=== PATIENT | male | born 1970 | race Hispanic/Latino ===

== ENCOUNTER 2018-06-10 19:35 | Emergency (ER) | payer BC, SELFPAY ==
--- OUTSIDE RECORDS SUMMARY | 2018-06-10 19:37 | XMS REPORT ---
:1970 Author Organization eClinicalWorks Care Team Providers Name Role Phone Harpal Jp Provider Role Unavailable Allergies, Adverse Reactions, Alerts Substance Reaction Event Type N.K.D.A. Info Not Available Non Drug Allergy Problems Problem Type Condition Code Onset Dates Condition Status Problem Premature ejaculation F52.4 Active Problem Diabetes mellitus type 2, controlled E11.9 Active Problem Esophageal stenosis K22.2 Active Problem Overweight E66.3 Active Problem Restless leg syndrome G25.81 Active Problem Insomnia G47.00 Active Problem Mixed hyperlipidemia E78.2 Active Problem Benign essential hypertension I10 Active Problem Esophagitis K20.9 Active Problem Helicobacter pylori gastritis B96.81 Active Assessment Benign essential hypertension I10 Active Assessment Mixed hyperlipidemia E78.2 Active Assessment Esophagitis K20.9 Active Problem Decreased libido R68.82 Active Problem Hemorrhoids, unspecified hemorrhoid K64.9 Active type Assessment Diabetes mellitus type 2, controlled E11.9 Active Problem Fatigue, unspecified type R53.83 Active Problem Psoriasis, unspecified L40.9 Active Medications Medication Code Code Instructions Start End Status Dosage System Date Date Simvastatin ND 49319856606 80 MG Orally Active 1 tablet Once a day in the evening Farxiga [facility] 28749885187 5 MG Orally Once Active 1 tablet a day Metformin HCl ND 56153377293 1000 MG Orally Active 1 tablet Twice a day with meals Aspirin Adult [facility] 49827062654 81 MG Orally Active 1 tablet Low Dose Once a day Lisinopril [facility] 19947078327 10 MG Orally Active 1 tablet Once a day Results No Known Results Summary Purpose eClinicalWorks Submission
--- OUTSIDE RECORDS SUMMARY | 2018-06-10 19:37 | XMS REPORT ---
:1970 Author Organization eClinicalWorks Care Team Providers Name Role Phone Jp oRwan Provider Role Unavailable Allergies, Adverse Reactions, Alerts Substance Reaction Event Type N.K.D.A. Info Not Available Non Drug Allergy Problems Problem Type Condition Code Onset Dates Condition Status Problem Premature ejaculation F52.4 Active Problem Diabetes mellitus type 2, controlled E11.9 Active Problem Esophageal stenosis K22.2 Active Problem Overweight E66.3 Active Assessment Decreased libido R68.82 Active Problem Restless leg syndrome G25.81 Active Assessment Fatigue, unspecified type R53.83 Active Problem Insomnia G47.00 Active Problem Mixed hyperlipidemia E78.2 Active Problem Benign essential hypertension I10 Active Problem Esophagitis K20.9 Active Problem Helicobacter pylori gastritis B96.81 Active Assessment Benign essential hypertension I10 Active Assessment Mixed hyperlipidemia E78.2 Active Assessment Hemorrhoids, unspecified hemorrhoid K64.9 Active type Assessment Esophagitis K20.9 Active Problem Decreased libido R68.82 Active Problem Hemorrhoids, unspecified hemorrhoid K64.9 Active type Assessment Diabetes mellitus type 2, controlled E11.9 Active Problem Fatigue, unspecified type R53.83 Active Assessment Encounter for preventative adult Z00.01 Active health care exam with abnormal findings Problem Psoriasis, unspecified L40.9 Active Medications Medication Code Code Instructions Start End Status Dosage System Date Date Aspirin Adult [facility] 98262385371 81 MG Orally Active 1 tablet Low Dose Once a day Simvastatin [facility] 59337953327 80 MG Orally Active 1 tablet Once a day in the evening Lisinopril [facility] 65242052677 10 MG Orally Active 1 tablet Once a day Farxiga [facility] 80115549285 5 MG Orally Once December 02January Active 1 tablet a day 2017 Metformin HCl [facility] 21149458211 1000 MG Orally Active 1 tablet Twice a day with meals Results No Known Results Summary Purpose eClinicalWorks Submission
--- OUTSIDE RECORDS SUMMARY | 2018-06-10 19:37 | XMS REPORT ---
:1970 Author Organization eClinicalWorks Care Team Providers Name Role Phone Sergio Bone Provider Role Unavailable Allergies, Adverse Reactions, Alerts [...] Active Problem Helicobacter pylori gastritis B96.81 Active Problem Decreased libido R68.82 Active Problem Hemorrhoids, unspecified hemorrhoid K64.9 Active type Assessment Grade I hemorrhoids K64.0 Active Problem Fatigue, unspecified type R53.83 Active Assessment Encounter for screening colonoscopy Z12.11 Active Problem Psoriasis, unspecified L40.9 Active Medications Medication Code Code Instructions Start End Status Dosage System Date Date Lisinopril [facility] 17093866572 10 MG Orally Active 1 tablet Once a day Farxiga [facility] 34027188751 5 MG Orally Once December 02January Active 1 tablet a day 2017 Aspirin Adult [facility] 89412622703 81 MG Orally Active 1 tablet Low Dose Once a day Metformin HCl [facility] 55451899773 1000 MG Orally Active 1 tablet Twice a day with meals Simvastatin [facility] 65576959972 80 MG Orally Active 1 tablet Once a day in the evening Results No Known Results Summary Purpose eClinicalWorks Submission
--- OUTSIDE RECORDS SUMMARY | 2018-06-10 19:38 | XMS REPORT ---
:1970 Author Organization eClinicalWorks Care Team Providers Name Role Phone Jp Rowan Provider Role Unavailable Allergies No Known Allergies Problems Problem Type Condition Code Onset Dates [...] Status Dosage System Date Date Simvastatin ND 36395835108 80 Orally Once a Active 1 tablet day in the evening Metformin HCl ND 15272415708 1000 MG Orally Active 1 tablet Twice a day with meals Simvastatin ND 88755576226 80 MG Orally Active 1 tablet Once a day in the evening Metformin HCl [facility] [place] 59423100731 1000 Orally Active 1 tablet Twice a day with meals Aspirin Adult [facility] [place] 2[place] 96333326830 81 MG Orally Active 1 tablet Low Dose Once a day Farxiga [facility] [place] 2[place] 28347770988 5 MG Orally Once Aug 11, Active 1 tablet a day 2018 Lisinopril ND 58509182284 10 MG Orally Active 1 tablet Once a day Results No Known Results Summary Purpose eClinicalWorks Submission
[2018-06-10] MEDS ORDERED: IBUPROFEN 200 MG TAB PO ONE (20:49)
[2018-06-10] MEDS ORDERED: IBUPROFEN 400 MG TAB ONE (20:49)
[2018-06-10] MEDS ORDERED: ACETAMINOPHEN 500 MG TAB ONE (20:50)
--- NOTE | 2018-06-10 21:37 | RAD REPORT ---
EXAM DESCRIPTION: Erica Akins And Nanci (2 Views)06/10/2018 9:05 pm CLINICAL HISTORY: Cough COMPARISON: None FINDINGS: The lungs appear clear of acute infiltrate. The heart is normal size. An azygos lobe is n oted. IMPRESSION: No acute abnormalities displayed
--- NOTE | 2018-06-10 21:39 | RAD REPORT ---
EXAM DESCRIPTION: RAD -Hand Left 3 View - 06/10/2018 9:05 pm CLINICAL HISTORY: Left hand pain status post injury FINDINGS: No fracture or dislocation is seen.
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
== END 2018-06-10 22:07 | disposition home or self-care (01) ==
LOC: ER 19:35
DX: S00.33XA Contusion of nose, initial encounter (principal); S60.222A Contusion of left hand, initial encounter; V49.40XA Driver injured in collision with unspecified motor vehicles in traffic accident, initial encounter; I10 Essential (primary) hypertension; E11.9 Type 2 diabetes mellitus without complications; E78.00 Pure hypercholesterolemia, unspecified
CPT/HCPCS: 71046; 99284

== ENCOUNTER 2020-03-12 07:14 | Day surgery (SDC) | payer BC ==
[2020-03-12] MEDS: NA CHLORIDE 0.9% 1,000 ML ONE ×2 (07:15→12:54)
--- OUTSIDE RECORDS SUMMARY | 2020-03-12 07:18 | XMS REPORT | Continuity of Care Document ---
:1970 Author Organization [facility] Address [address] [place] [address] [address] [place] [address] Care Team Providers Name Role Phone Unavailable Unavailable Unavailable Problems Condition Condition Condition Status Onset Resolution Last Treating Co mments Source Name Details Category Date Date Treatment Clinician Date Premature Premature Problem Active [facility] ejaculatio ejaculatio Emerita kes - n n Memoria l [facility] Diabetes Diabetes Problem Active [facility] mellitus mellitus [facility] - type 2, type 2, Memoria controlled controlled l [facility] Esophageal Esophageal Problem Active [facility] stenosis stenosis [facility] - [facility] Overweight Overweight Problem Active [facility] - [facility] Decreased Decreased Problem Active [facility] libido libido [facility] - [facility] Restless Restless Problem Active [facility] leg leg [facility] - syndrome syndrome Memori a l [facility] Fatigue, Fatigue, Problem Active [facility] unspecifie unspecifie Emerita kes - d type d type Memoria l [facility] Insomnia Insomnia Problem Active [facility] Mixed Mixed Diagnosis Active [facility] hyperlipid hyperlipid Emerita kes - emia emia Memoria l [facility] Benign Benign Problem Active [facility] essential essential [facility] s - hypertensi hypertensi Me moria on on l [facility] Esophagiti Esophagiti Problem Active [facility] s s [facility] - [facility] Helicobact Helicobact Problem Active [facility] er pylori er pylori Luke s - gastritis gastritis Jovi dillon l [facility] Hemorrhoid Hemorrhoid Problem Active [facility] s, s, [facility] - unspecifie unspecifie Me moria d d l hemorrhoid hemorrhoid Ou tpati type type ent Clinics Psoriasis, Psoriasis, Problem Active [facility] unspecifie unspecifie Emerita kes - d d Memoria l [facility] Non Non Diagnosis Active [facility] compliance compliance Emerita kes - with with [facility] medical medical l treatment treatment Outp ati ent Clinics Adult BMI Adult BMI Diagnosis Active [facility] 27.0-27.9 27.0-27.9 Luke s - kg/sq m kg/sq m [facility] Encounter Encounter Diagnosis Active [facility] for for [facility] - wellness wellness Memori a examinatio examinatio l n in adult n in adult Ou tpati ent Clinics Need for Need for Diagnosis Active [facility] Tdap Tdap [facility] - vaccinatio vaccinatio Me moria n n l [facility] Screening Screening Diagnosis Active [facility] for colon for colon Luke s - cancer cancer [facility] Allergies, Adverse Reactions, Alerts This patient has no known allergies or adverse reactions. Medications Ordered Filled Start Stop Current Ordering Indication Dosage Frequency Signature Comments Components Source Medication Medication Date Date Medication? Clinician (SIG) Name Name Jardiance Jardiance 2019- Yes Jp [address] [facility] [address] 02-23 Rowan [facility] - 00:00: 00:00 Memoria 00 :00 [facility] Trazodone Trazodone Yes Jp [address] [facility] [address] HCl HCl 1-03 Rowan at bedtime [facility] - 00:00: Memoria 00 [facility] Aspirin Aspirin Yes Jp [address] [facility] Adult Low Adult Low Rowan Luke s - Dose Dose [facility] Metformin Metformin Yes Jp [address] [facility] [address] HCl HCl Rowan with meals [facility] Lisinopril Lisinopril Yes Jp [address] [facility] [address] Rowan [facility] Simvastatin Simvastatin Yes Jp [address] [facility] [address] Rowan in the [facility]ukes - evening [facility] Immunizations Ordered Filled Immunization Date Status Comments Sourc e Immunization Name Name Tdap Tdap 2020-02-[address] [facility] - 00:[facility]00 [facility] Procedures This patient has no known procedures. Encounters Start End Encounter Admission Attending Care Care Encounter Source Date/Time Date/Time Type Type Clinicians Facility Department ID 2020-02-24 2020-02-24 Outpatient Chandan Gonzalez [id number] [facility] [address] 08[facility]15[facility]00 08:15:[address] [place] [address] [facility] [place] - Drive [facility] Medicine l Medicine Outpati ent Clinics 2019-10-07 2019-10-07 [facility] [id number] [address] 08:37:00 08:37:[address] [place] [address] Luke s - Drive [facility] Medicine l Medicine Outpati ent Clinics 2019-10-06 2019-10-06 [facility] [id number] 14:15:00 14:15:[address] [place] [address] Luke s - Drive [facility] Medicine l Medicine Outpati ent Clinics 2019-08-05 2019-08-05 [facility] [id number] 10:15:00 10:15:00 [place] [employer] [place] - Drive [facility] l Medicine Outpati ent Clinics 2018-10-19 2018-10-19 [facility] [id number] 09:53:00 09:53:00 [place] [employer] [place] - Drive [facility] Medicine Medicine Outpati ent Clinics 2018-10-18 2018-10-18 [facility] [id number] 13:15:00 13:15:00 [place] [id number] - Drive [facility] Medicine l Medicine Outpati ent Clinics 2018-09-01 2018-09-01 [facility] [id number] 11:57:00 11:57:00 [place] [employer] [place] - Drive [facility] Medicine l Medicine Outpati ent Clinics 2018-08-20 2018-08-20 [facility] [id number] 08:00:00 08:00:00 [place] [employer] [place] s - Drive [facility] Medicine l Medicine Outpati ent Clinics 2018-05-13 2018-05-13 [facility] [id number] [address] 13:15:00 13:15:00 [place] [employer] - Drive [facility] Medicine l Medicine Outpati ent Clinics 2018-02-12 2018-02-12 [facility] [id number] 09[facility]00:00 09:00:00 [place] [employer] - Drive [facility] Medicine l Medicine Outpati ent Clinics 2017-12-15 2017-12-15 [facility] [id number] [facility] 15:00:00 15:00:00 t Specialty/U Emerita kes - Specialty rology [facility] a /Urology Clinic l Clinic Outpati ent Clinics 2017-12-02 2017-12-02 Outpatient Chandan Gonzalez [id number] [facility] 15:15:00 15:15:00 t [place] [employer] [place] [facility] - [employer] [facility] Medicine [facility] Clinics Results This patient has no known results.
--- OUTSIDE RECORDS SUMMARY | 2020-03-12 07:19 | XMS REPORT ---
:1970 Author Organization [employer] Care Team Providers Name Role Phone Gail Rowanh Provider Role Unavailable Allergies, Adverse Reactions, Alerts Substance Reaction Event Type N.K.D.A. Info Not Available Non Drug Allergy Problems Problem Type Condition Code Onset Dates Condition Statu s Problem Mixed hyperlipidemia E78.2 Active Problem Esophagitis K20.9 Active Problem Helicobacter pylori gastritis B96.81 Active Problem Esophageal stenosis K22.2 Active Assessment Insomnia, unspecified type G47.00 A ctive Problem Premature ejaculation F52.4 Active Assessment Non compliance with medical Z91.19 Active treatment Assessment Adult BMI 27.0-27.9 kg/sq m Z68.27 Active Problem Insomnia, unspecified type G47.00 A ctive Problem Overweight E66.3 Active Problem Restless leg syndrome G25.81 Active Problem Psoriasis, unspecified L40.9 Activ e Problem Insomnia G47.00 Active Assessment Diabetes mellitus type 2, controlled E11.9 Active Assessment Encounter for wellness examination Z00.00 Active in adult Assessment Benign essential hypertension I10 Active Assessment Mixed hyperlipidemia E78.2 Active Problem Fatigue, unspecified type R53.83 Ac tive Problem Decreased libido R68.82 Active Assessment Need for Tdap vaccination Z23 Ac tive Problem Diabetes mellitus type 2, controlled E11.9 Active Assessment Screening for colon cancer Z12.11 A ctive Problem Hemorrhoids, unspecified hemorrhoid K64.9 Active type Problem Benign essential hypertension I10 Active Medications Medication Code Code Instructions Start End Status Dosage System Date Date Simvastatin ND 99962663444 80 MG Orally Active 1 t ablet Once a day in the evening Trazodone HCl ND 58170434360 100 MG Orally Active 1 tablet Once a day at bedtime Lisinopril ND 10367182256 5 MG Orally Once Active 1 tablet a day Aspirin Adult ND 30477789339 81 MG Orally Active 1 tablet Low Dose Once a day Metformin HCl ND 56016723872 1000 MG Orally Active 1 tablet Twice a day with meals Jardiance [facility] 82812474594 10 MG Orally February 23May 24, Active 1 ta blet Once a day 2019 2019 Results No Known Results Immunizations Vaccine Administration Date Tdap February 24, 2020 Summary Purpose [employer] Submission
[2020-03-12] MEDS ORDERED: LIDOCAINE 1% MPF 5 ML VIAL ONE (08:41)
[2020-03-12] MEDS ORDERED: propofoL 200 MG/20 ML VIAL IV ONE (08:41)
--- NOTE | 2020-03-12 10:27 | ENDO RPT ---
[address], [address] COLONOSCOPY PROCEDURE REPORT EXAM DATE: 03/12/2020 PATIENT NAME: Siddharth Ceballos MR #: [id number] BIRTHDATE: 1970 ATTENDING: Neftali Wen MD STATUS: outpatient CEMENT SIDE LASTER: Shree Benz CST and Ginger Prakash RN INDICATIONS: The patient is a 49 yr old Male here for a colonoscopy due to rectal bleeding and bright red bleeding PROCEDURE PERFORMED: Colonoscopy MEDICATIONS: Per Anesthesia. ESTIMATED BLOOD LOSS: None CONSENT: The patient understands the risks and benefits of the procedure and understands that these risks include, but are not limited to: sedation, allergic reaction, infection, perforation and/or bleeding. Alternative means of evaluation and treatment include, among others: physical exam, x-rays, and/or surgical intervention. The patient elects to proceed with this endoscopic procedure. DESCRIPTION OF PROCEDURE: During intra-op preparation period all mechanical medical equipment was checked for proper function. Hand hygiene and appropriate measures for infection prevention was taken. Procedure, possible complications, alternatives including, but not limited to possibility of bleeding, perforation, tear, infection, sepsis, need for surgery, need for blood transfusion, were explained to the patient. After the risks, benefits and alternatives of the procedure were thoroughly explained, Informed consent was verified, confirmed and timeout was successfully executed by the treatment team. The patient was placed in the left lateral position. A digital rectal exam was performed and revealed external hemorrhoids. After appropriate level of anesthesia, the scope was passed. The EC-[id number] ([id number]) endoscope was introduced through the anus and advanced to the cecum, which was identified by transillumination from the light source, the appendix, and the ileocecal valve. The quality of the prep was fair. The instrument was then slowly withdrawn as the colon was fully examined. Scope withdrawal time was . COLON FINDINGS: Mild diverticulosis was noted in the sigmoid colon. No bleeding was noted from the diverticulosis. Internal and external hemorrhoids were found. Retroflexed views revealed no abnormalities. The scope was then completely withdrawn from the patient and the procedure terminated. ADVERSE EVENTS: There were no complications. IMPRESSIONS: 1. Mild diverticulosis was noted in the sigmoid colon 2. Internal and external hemorrhoids RECOMMENDATIONS: 1. follow-up: office 1-2 week(s) 2. no seeds in diet 3. continue surveillance RECALL: Return in 5 year(s) for Colonoscopy. Neftali Wen MD eSigned: Neftali Wen MD 03/12/2020 8:57 AM cc: Jp Rowan MD CPT CODES: ICD9 CODES: PATIENT NAME: Siddharth CeballosJarad MR#: [id number]
[2020-03-12 13:36] VITALS: BP 132/82; TEMP 97.3; O2SAT 96
== END 2020-03-12 09:20 | disposition home or self-care (01) ==
LOC: OR 07:14
PROVIDERS: ATTEND Surgery
PROC: 0DJD8ZZ Inspection of Lower Intestinal Tract, Via Natural or Artificial Opening Endoscopic (ICD-10-PCS; principal; 2020-03-12 08:30)
DX: K57.30 Diverticulosis of large intestine without perforation or abscess without bleeding (principal); K64.4 Residual hemorrhoidal skin tags; K64.8 Other hemorrhoids; E11.9 Type 2 diabetes mellitus without complications; I10 Essential (primary) hypertension; Z79.84 Long term (current) use of oral hypoglycemic drugs; Z79.82 Long term (current) use of aspirin; Z79.899 Other long term (current) drug therapy
CPT/HCPCS: 82947; 45378; J2704; J7030